=== PATIENT | male | born 1980 | race Caucasian/White ===

== ENCOUNTER 2016-09-12 19:46 | Emergency (ER) | payer SELFPAY ==
[2016-09-12] MEDS ORDERED: Ketorolac 30 MG/ML SDV IVPUSH ONE (19:54)
[2016-09-12] MEDS ORDERED: Sodium Chloride 0.9% 1,000 ML IV ONE (19:54)
[2016-09-12] MEDS ORDERED: Ondansetron 4 MG/2 ML SDV IVPUSH ONE (19:54)
--- NOTE | 2016-09-12 20:46 | EDM.PDOC ---
ED HPI GENERAL MEDICAL PROBLEM - General Chief Complaint: Upper Extremity Injury/Pain Stated Complaint: PT HURT RT SHOULDER Time Seen by Provider: 09/12/16 19:51 Source of Information: Reports: Patient History Limitations: Reports: No Limitations - History of Present Illness INITIAL COMMENTS - FREE TEXT/NARRATIVE: History of present illness: [26-year-old male presenting with acute onset right-sided shoulder and clavicular pain. Patient indicates that he had an accident on his side by side where he hyperextended his arm and subsequently had a traumatic jabbing sensation into his arm and now he feels he cannot lift his arm without assistance from his opposing arm] Review of systems: As per history of present illness and below otherwise all systems reviewed and negative. Past medical history: As per history of present illness and as reviewed below otherwise noncontributory. Surgical history: As per history of present illness and as reviewed below otherwise noncontributory. Social history: No reported history of drug or alcohol abuse. Family history: As per history of present illness and as reviewed below otherwise noncontributory. Physical exam: HEENT: Atraumatic, normocephalic, pupils reactive, negative for conjunctival pallor or scleral icterus, mucous membranes moist, throat clear, neck supple, nontender, trachea midline. Lungs: Clear to auscultation, breath sounds equal bilaterally, chest nontender. Heart: S1S2, regular, negative for clicks, rubs, or JVD. Abdomen: Soft, nondistended, nontender. Negative for masses or hepatosplenomegaly. Negative for costovertebral tenderness. Pelvis: Stable nontender. Genitourinary: Deferred. Rectal: Deferred. Extremities: Obvious elevation of right clavicle with discordant continuity the bone, negative for cords or calf pain. Neurovascular unremarkable. Neuro: Awake, alert, oriented. Cranial nerves II through XII unremarkable. Cerebellum unremarkable. Motor and sensory unremarkable throughout. Exam nonfocal. Diagnostics: [X-ray right shoulder and right clavicle] Therapeutics: [] Impression: [Fractured clavicle] Plan: [Sling, pain medicine, orthopnea referral] Definitive disposition and diagnosis as appropriate pending reevaluation and review of above. - Related Data Allergies Allergy/AdvReac Type Severity Reaction Status Date / Time No Known Allergies Allergy Verified 09/12/16 20:02 Home Meds: Home Meds . [No Known Home Meds] 09/12/16 [History] Review of Systems - Review of Systems Review Of Systems: See Below (See history of present illness) ED EXAM, GENERAL - Physical Exam Exam: See Below (See history of present illness) Course - Orders/Labs/Meds Orders: Active Orders 24 hr Category Date Time Status Clavicle Rt [CR] Stat Exams 09/12/16 19:50 Ordered Shoulder Comp Rt [CR] Stat Exams 09/12/16 19:50 Ordered Departure - Departure Time of Disposition: 20:48 Disposition: Home, Self-Care 01 Condition: Good Clinical Impression: Closed fracture of clavicle - Discharge Information Instructions: Clavicle Fracture, [id number], How to Use a Sling, [id number] Forms: ED Department Discharge Additional Instructions: The following information is given to patients seen in the emergency department who are being discharged to home. This information is to outline your options for follow-up care. We provide all patients seen in our emergency department with a follow-up referral. The need for follow-up, as well as the timing and circumstances, are variable depending upon the specifics of your emergency department visit. If you don't have a primary care physician on staff, we will provide you with a referral. We always advise you to contact your personal physician following an emergency department visit to inform them of the circumstance of the visit and for follow-up with them and/or the need for any referrals to a consulting specialist. The emergency department will also refer you to a specialist when appropriate. This referral assures that you have the opportunity for follow-up care with a specialist. All of these measure are taken in an effort to provide you with optimal care, which includes your follow-up. Under all circumstances we always encourage you to contact your private physician who remains a resource for coordinating your care. When calling for follow-up care, please make the office aware that this follow-up is from your recent emergency room visit. If for any reason you are refused follow-up, please contact the [facility] Emergency Department at and asked to speak to the emergency department charge nurse. Use sling as discussed Take pain medication as discussed Follow-up with Ortho as referred Return to ER as needed as discussed [facility] [address] [place] [id number] [facility] [address], [address] [place] [address] - My Orders Last 24 Hours: My Active Orders 09/12/16 19:50 Clavicle Rt [CR] Stat Shoulder Comp Rt [CR] Stat - Assessment/Plan Last 24 Hours: My Active Orders 09/12/16 19:50 Clavicle Rt [CR] Stat Shoulder Comp Rt [CR] Stat
[2016-09-12 21:13] VITALS: BP 110/61
--- NOTE | 2016-09-13 17:02 | CR ---
EXAM DATE: 09/12/16 PATIENT'S AGE: 36 Patient: JACE SOTELO Facility: [place], [place] Site . Site : 1980 Study: XRay Shoulder Right clavicle [id number] 8:11:27 PM Ordering Physician: Doctor Wharton Final Report: Right clavicle 2 VIEWS INDICATION: Pain. IMPRESSION: Marked elevation of the right clavicle and marked widening of the AC joint compatible with complete acromioclavicular separation and ligamentous disruption. No osseous fracture however this could represent grade 4 acromial clavicular injury given the marked diastasis. Dictated by Yordy Joe MD @ Sep 12 2016 8:37PM (Electronic Signature) Report Signed by Proxy. SHAHRAM
--- NOTE | 2016-09-13 17:05 | CR ---
EXAM DATE: 09/12/16 PATIENT'S AGE: 36 Patient: JACE SOTELO Facility: [place], [place] Site . Site : 1980 Study: XRay Shoulder Right [id number] 8:12:14 PM Ordering Physician: Doctor Wharton Final Report: Right shoulder. 2 VIEWS INDICATION: Pain. IMPRESSION: See the report for right clavicle. The glenohumeral joint appears normal. No visualized fracture of the scapula or proximal humerus. Mild irregularity distal clavicle no fracture. Dictated by Yordy Joe MD @ Sep 12 2016 8:38PM (Electronic Signature) Report Signed by Proxy. SHAHRAM
== END 2016-09-12 21:13 | disposition home or self-care (01) ==
LOC: MW.ED 19:46
DX: S42.001A Fracture of unspecified part of right clavicle, initial encounter for closed fracture (principal); X50.9XXA Other and unspecified overexertion or strenuous movements or postures, initial encounter
CPT/HCPCS: 73000; 73030; 96361; 96374; 96375; 99284; J1885; J2405; J7040; 99282

== ENCOUNTER 2016-12-31 00:22 | Emergency (ER) | payer SELFPAY ==
--- NOTE | 2016-12-31 00:32 | EDM.PDOC ---
ED HPI GENERAL MEDICAL PROBLEM - General Stated Complaint: ASTHMA Time Seen by Provider: 12/31/16 00:29 - History of Present Illness INITIAL COMMENTS - FREE TEXT/NARRATIVE: HISTORY AND PHYSICAL: History of present illness: Patient 36-year-old white male presents with a concern of medication refill he has a history of asthma states he's run out of his inhaler Review of systems: As per history of present illness and below otherwise all systems reviewed and negative. Past medical history: As per history of present illness and as reviewed below otherwise noncontributory. Surgical history: As per history of present illness and as reviewed below otherwise noncontributory. Social history: No reported history of drug or alcohol abuse. Family history: As per history of present illness and as reviewed below otherwise noncontributory. Physical exam: HEENT: Atraumatic, normocephalic, pupils reactive, negative for conjunctival pallor or scleral icterus, mucous membranes moist, throat clear, neck supple, nontender, trachea midline. Lungs: Clear to auscultation, breath sounds equal bilaterally, chest nontender. Heart: S1S2, regular, negative for clicks, rubs, or JVD. Abdomen: Soft, nondistended, nontender. Negative for masses or hepatosplenomegaly. Negative for costovertebral tenderness. Pelvis: Stable nontender. Genitourinary: Deferred. Rectal: Deferred. Extremities: Atraumatic, negative for cords or calf pain. Neurovascular unremarkable. Neuro: Awake, alert, oriented. Cranial nerves II through XII unremarkable. Cerebellum unremarkable. Motor and sensory unremarkable throughout. Exam nonfocal. Diagnostics: None Therapeutics: None Impression: #1 history of asthma #2 medication refill Definitive disposition and diagnosis as appropriate pending reevaluation and review of above. - Related Data Allergies Allergy/AdvReac Type Severity Reaction Status Date / Time No Known Allergies Allergy Verified 09/12/16 20:02 Home Meds: Home Meds . [No Known Home Meds] 09/12/16 [History] Past Medical History - Past Health History Medical/Surgical History: Denies Medical/Surgical History HEENT History: Reports: None Cardiovascular History: Reports: None Respiratory History: Reports: Asthma Gastrointestinal History: Reports: None Genitourinary History: Reports: None Musculoskeletal History: Reports: None Neurological History: Reports: None Psychiatric History: Reports: None Endocrine/Metabolic History: Reports: None - Infectious Disease History Infectious Disease History: Reports: Chicken Pox - Past Surgical History Cardiovascular Surgical History: Reports: None Social & Family History - Family History Family Medical History: Noncontributory - Tobacco Use Smoking Status *Q: Never Smoker - Recreational Drug Use Recreational Drug Use: Yes Recreational Drug Use Frequency: Socially ED ROS GENERAL - Review of Systems Review Of Systems: ROS reveals no pertinent complaints other than HPI. ED EXAM, GENERAL - Physical Exam Exam: See Below Departure - Departure Time of Disposition: 00:31 Disposition: Home, Self-Care 01 Condition: Good Clinical Impression: History of asthma, Medication refill - Discharge Information Referrals: PCP,None [Primary Care Provider] - Additional Instructions: The following information is given to patients seen in the emergency department who are being discharged to home. This information is to outline your options for follow-up care. We provide all patients seen in our emergency department with a follow-up referral. The need for follow-up, as well as the timing and circumstances, are variable depending upon the specifics of your emergency department visit. If you don't have a primary care physician on staff, we will provide you with a referral. We always advise you to contact your personal physician following an emergency department visit to inform them of the circumstance of the visit and for follow-up with them and/or the need for any referrals to a consulting specialist. The emergency department will also refer you to a specialist when appropriate. This referral assures that you have the opportunity for followup care with a specialist. All of these measure are taken in an effort to provide you with optimal care, which includes your followup. Under all circumstances we always encourage you to contact your private physician who remains a resource for coordinating your care. When calling for followup care, please make the office aware that this follow-up is from your recent emergency room visit. If for any reason you are refused follow-up, please contact the [facility] emergency department at and asked to speak to the emergency department charge nurse. ALYSHA [facility] [address] [place] [id number] Albuterol as prescribed follow-up clinic above call to schedule routine appointment and return as needed as discussed
[2016-12-31 02:17] VITALS: BP 166/76
== END 2016-12-31 00:50 | disposition home or self-care (01) ==
LOC: MW.ED 00:22
DX: Z76.0 Encounter for issue of repeat prescription (principal); J45.909 Unspecified asthma, uncomplicated
CPT/HCPCS: 99281; 99282

== ENCOUNTER 2021-01-08 08:29 | Emergency (ER) | payer BC ==
[2021-01-08] MEDS ORDERED: Ondansetron 4 MG/2 ML SDV IVPUSH ONE (09:00)
[2021-01-08] MEDS ORDERED: Sodium Chloride 0.9% 10 ML Syringe FLUSH PRN (09:00)
[2021-01-08] MEDS ORDERED: Sodium Chloride 0.9% 2.5 ML Syringe FLUSH PRN (09:00)
--- NOTE | 2021-01-08 09:05 | EDM.PDOC ---
ED HPI GENERAL MEDICAL PROBLEM - General Chief Complaint: Gastrointestinal Problem Stated Complaint: VOMITTING Time Seen by Provider: 01/08/21 08:32 - History of Present Illness INITIAL COMMENTS - FREE TEXT/NARRATIVE: 40-year-old male no significant past medical history presenting with nausea vomiting diarrhea and p.o. intolerance. Patient reports that his symptoms started approximately 5 weeks ago. He was diagnosed with H. pylori and given treatment for that. Shortly following that he developed bacterial sinusitis he was placed on Augmentin which did not alleviate his sinus symptoms. He was then placed on Levaquin. This relieved his sinus symptoms within a few days. However approximately 5 days ago he developed nausea vomiting diarrhea and cramping abdominal pain. He stopped taking the Levaquin that the symptoms started. He does have night sweats and chills. He reports a 26 pound weight loss over the last month as well. No dysuria or hematuria no cough or shortness of breath. Patient has had multiple negative tests for COVID-19 over this period of time. Denies prior history of similar episodes. - Related Data Allergies Allergy/AdvReac Type Severity Reaction Status Date / Time No Known Allergies Allergy Verified 01/08/21 08:41 Home Meds: Home Meds Albuterol [Ventolin HFA] 8 gm INH BID PRN 12/31/16 [History] lisinopriL [Lisinopril] 5 mg PO DAILY 01/08/21 [History] Past Medical History - Past Health History Medical/Surgical History: Denies Medical/Surgical History HEENT History: Reports: None Cardiovascular History: Reports: None Respiratory History: Reports: Asthma Gastrointestinal History: Reports: Helicobacter Pylori Genitourinary History: Reports: None Musculoskeletal History: Reports: None Neurological History: Reports: None Psychiatric History: Reports: None Endocrine/Metabolic History: Reports: None Immunologic History: Reports: None Oncologic (Cancer) History: Reports: None Dermatologic History: Reports: None - Infectious Disease History Infectious Disease History: Reports: Chicken Pox - Past Surgical History Cardiovascular Surgical History: Reports: None Social & Family History - Family History Family Medical History: No Pertinent Family History - Tobacco Use Tobacco Use Status *Q: Never Tobacco User - Caffeine Use Caffeine Use: Reports: Coffee, Soda - Recreational Drug Use Recreational Drug Use: No ED ROS GENERAL - Review of Systems Review Of Systems: See Below Free Text/Narrative/Comment: General: Per HPI Skin: No rash. Eyes: No vision problems. ENT: No sore throat. Neck: No neck stiffness. Respiratory: No shortness of breath. Cardiac: No chest pain. Gastrointestinal: Per HPI Urinary: No dysuria. Musculoskeletal: No myalgias/arthralgias. Neurologic: No headache. ED EXAM, GENERAL - Physical Exam Exam: See Below Free Text/Narrative:: General Appearance: No acute distress, appears comfortable Skin: No rash HEENT: Normocephalic/atraumatic, sclera anicteric, mucous membranes dry Neck: Normal range of motion Chest and Lungs: Bilateral breath sounds, clear to auscultation Cardiovascular: Regular rate and rhythm, no murmur Abdomen: Soft, non-tender Musculoskeletal: No edema or tenderness Neurologic: Awake, alert, no obvious deficits, moving all extremities Psychiatric: Appropriate, cooperative Course - Vital Signs Last Recorded V/S: Last Vital Signs Temp 97.2 F 01/08/21 09:53 Pulse 67 01/08/21 09:53 Resp 16 01/08/21 09:53 BP 106/64 01/08/21 09:53 Pulse Ox 98 01/08/21 09:53 - Orders/Labs/Meds Orders: Active Orders 24 hr Category Date Time Status Lactated Ringers [Ringers, Lactated] 1,000 ml Med 01/08/21 09:15 Active IV ASDIRECTED Sodium Chloride 0.9% [Saline Flush] Med 01/08/21 09:00 Active 10 ml FLUSH ASDIRECTED PRN Sodium Chloride 0.9% [Saline Flush] Med 01/08/21 09:00 Active 2.5 ml FLUSH ASDIRECTED PRN Saline Lock Insert [OM.PC] Stat Oth 01/08/21 09:00 Ordered Medication Orders Lactated Ringer's (Ringers, Lactated) 1,000 mls @ 999 mls/hr IV ASDIRECTED MARCO A Last Admin: 01/08/21 09:15 Dose: 999 mls/hr Documented by: [id number] Sodium Chloride (Sodium Chloride 0.9% 10 Ml Syringe) 10 ml FLUSH ASDIRECTED PRN PRN Reason: Keep Vein Open Last Admin: 01/08/21 09:14 Dose: 10 ml Documented by: [id number] Sodium Chloride (Sodium Chloride 0.9% 2.5 Ml Syringe) 2.5 ml FLUSH ASDIRECTED PRN PRN Reason: Keep Vein Open Last Admin: 01/08/21 09:13 Dose: 2.5 ml Documented by: [id number] Labs: Laboratory Tests 01/08/21 01/08/21 Range/Units 09:00 09:00 WBC 7.19 (4.0-11.0) K/uL RBC 5.16 (4.50-5.90) M/uL Hgb 15.6 (13.0-17.0) g/dL Hct 44.8 (38.0-50.0) % MCV 86.8 (80.0-98.0) fL MCH 30.2 (27.0-32.0) pg MCHC 34.8 (31.0-37.0) g/dL RDW Std Deviation 42.3 (28.0-62.0) fl RDW Coeff of Pieter 13 (11.0-15.0) % Plt Count 220 (150-400) K/uL MPV 9.70 (7.40-12.00) fL Neut % (Auto) 74.2 (48.0-80.0) % Lymph % (Auto) 16.4 (16.0-40.0) % Turner % (Auto) 8.8 (0.0-15.0) % Eos % (Auto) 0.3 (0.0-7.0) % Baso % (Auto) 0.3 (0.0-1.5) % Neut # (Auto) 5.3 (1.4-5.7) K/uL Lymph # (Auto) 1.2 (0.6-2.4) K/uL Turner # (Auto) 0.6 (0.0-0.8) K/uL Eos # (Auto) 0.0 (0.0-0.7) K/uL Baso # (Auto) 0.0 (0.0-0.1) K/uL Nucleated RBC % 0.0 /100WBC Nucleated RBCs # 0 K/uL Sodium 135 L (136-148) mmol/L Potassium 4.2 (3.5-5.1) mmol/L Chloride 99 (98-107) mmol/L Carbon Dioxide 27.5 (21.0-32.0) mmol/L BUN 20 H (7.0-18.0) mg/dL Creatinine 1.1 (0.8-1.3) mg/dL Est Cr Clr Drug Dosing 98.96 mL/min Estimated GFR (MDRD) > 60.0 ml/min Glucose 113 H (74-106) mg/dL Calcium 8.8 (8.5-10.1) mg/dL Magnesium 2.2 (1.8-2.4) mg/dL Total Bilirubin 0.5 (0.2-1.0) mg/dL AST 35 (15-37) IU/L ALT 40 (14-63) IU/L Alkaline Phosphatase 52 (46-116) U/L Total Protein 8.6 H (6.4-8.2) g/dL Albumin 3.5 (3.4-5.0) g/dL Globulin 5.1 H (2.6-4.0) g/dL Albumin/Globulin Ratio 0.7 L (0.9-1.6) Lipase 125 (73-393) U/L Meds: Medications Generic Name Dose Route Start Last Admin Trade Name Freq PRN Reason Stop Dose Admin Lactated Ringer's 1,000 mls @ 999 mls/hr 01/08/21 09:15 01/08/21 09:15 Ringers, Lactated IV 999 mls/hr ASDIRECTED MARCO A Administration Sodium Chloride 10 ml 01/08/21 09:00 01/08/21 09:14 Sodium Chloride 0.9% 10 Ml Syringe FLUSH 10 ml ASDIRECTED PRN Administration Keep Vein Open Sodium Chloride 2.5 ml 01/08/21 09:00 01/08/21 09:13 Sodium Chloride 0.9% 2.5 Ml Syringe FLUSH 2.5 ml ASDIRECTED PRN Administration Keep Vein Open Discontinued Medications Generic Name Dose Route Start Last Admin Trade Name Freq PRN Reason Stop Dose Admin Famotidine 20 mg 01/08/21 09:43 01/08/21 09:52 Famotidine 20 Mg/2 Ml Sdv IVPUSH 01/08/21 09:44 20 mg ONETIME ONE Administration Ondansetron HCl 4 mg 01/08/21 09:00 01/08/21 09:10 Ondansetron 4 Mg/2 Ml Sdv IVPUSH 01/08/21 09:01 4 mg ONETIME ONE Administration Departure - Departure Time of Disposition: 10:19 Disposition: Home, Self-Care 01 Condition: Good Clinical Impression: Gastroenteritis - Discharge Information *PRESCRIPTION DRUG MONITORING PROGRAM REVIEWED*: Not Applicable *COPY OF PRESCRIPTION DRUG MONITORING REPORT IN PATIENT ERI: Not Applicable Instructions: Food Choices to Help Relieve Diarrhea, Adult, Dehydration, Adult, [id number] Forms: ED Department Discharge Additional Instructions: Your symptoms were likely due to a poor reaction to the Levaquin leading to significant dehydration. Your labs today were normal you had normal blood counts normal chemistry normal kidney function dysfunction. I encourage you to start taking an [id number] probiotic and to try and slowly and gradually resume a normal diet. If your symptoms worsen or you have any other new symptoms that concern you please call your doctor or return to the ER. If you do not have a primary care doctor you can follow-up at one of the primary clinics listed below. [facility] [address] [place] [address] [place] [address] The following information is given to patients seen in the emergency department who are being discharged to home. This information is to outline your options for follow-up care. We provide all patients seen in our emergency department with a follow-up referral. The need for follow-up, as well as the timing and circumstances, are variable depending upon the specifics of your emergency department visit. If you don't have a primary care physician on staff, we will provide you with a referral. We always advise you to contact your personal physician following an emergency department visit to inform them of the circumstance of the visit and for follow-up with them and/or the need for any referrals to a consulting specialist. The emergency department will also refer you to a specialist when appropriate. This referral assures that you have the opportunity for follow-up care with a specialist. All of these measure are taken in an effort to provide you with optimal care, which includes your follow-up. Under all circumstances we always encourage you to contact your private physician who remains a resource for coordinating your care. When calling for f ollow-up care, please make the office aware that this follow-up is from your recent emergency room visit. If for any reason you are refused follow-up, please contact the [facility] Emergency Department at and asked to speak to the emergency department charge nurse. Sepsis Event Note (ED) - Evaluation Sepsis Screening Result: No Definite Risk - Focused Exam Vital Signs: Vital Signs Temp Pulse Resp BP Pulse Ox 01/08/21 09:53 97.2 F 67 16 106/64 98 01/08/21 08:42 96.0 F L 95 16 134/80 96 - My Orders Last 24 Hours: My Active Orders 01/08/21 09:00 Sodium Chloride 0.9% [Saline Flush] 10 ml FLUSH ASDIRECTED PRN Sodium Chloride 0.9% [Saline Flush] 2.5 ml FLUSH ASDIRECTED PRN Saline Lock Insert [OM.PC] Stat 01/08/21 09:15 Lactated Ringers [Ringers, Lactated] 1,000 ml IV ASDIRECTED - Assessment/Plan Last 24 Hours: My Active Orders 01/08/21 09:00 Sodium Chloride 0.9% [Saline Flush] 10 ml FLUSH ASDIRECTED PRN Sodium Chloride 0.9% [Saline Flush] 2.5 ml FLUSH ASDIRECTED PRN Saline Lock Insert [OM.PC] Stat 01/08/21 09:15 Lactated Ringers [Ringers, Lactated] 1,000 ml IV ASDIRECTED Assessment:: Previously well 40-year-old male only past history of hypertension takes lisinopril for this presenting with signs and symptoms that would be consistent with profound dehydration and medication side effect. However viral gastroenteritis is possible C. difficile considered he does have a number of recent antibiotics but the degree of vomiting and the lack of any significant diarrhea without p.o. intake would make C. difficile much less likely. Malignancy needs to be considered as well given the weight loss but also felt less likely. CBC CMP magnesium and lipase ordered for initial evaluation. IV fluids and antinausea medicines will be given for therapeutics and will reassess. 0945: Labs are normal patient is having some good symptomatic improvement long term through his fluid. We will add Pepcid and initiate p.o. trial. 1020: Patient symptoms continue to improve he tolerated p.o. well patient felt stable for discharge return precaution discussed and understood.
[2021-01-08] MEDS ORDERED: Lactated Ringers 1,000 ML IV SCH (09:15)
[2021-01-08 09:36] LABS: BLOOD UREA NITROGEN,BUN 20 mg/dL (7.0-18.0); CARBON DIOXIDE,CO2 27.5 mmol/L (21.0-32.0); CHLORIDE,CL 99 mmol/L (98-107); GLUCOSE RANDOM 113 mg/dL (74-106); LIPASE 125 U/L (73-393); POTASSIUM,K 4.2 mmol/L (3.5-5.1); SODIUM,NA 135 mmol/L (136-148)
[2021-01-08] MEDS ORDERED: Famotidine 20 MG/2 ML SDV IVPUSH ONE (09:43)
[2021-01-08 10:29] VITALS: BP 111/72; PULSE 82
== END 2021-01-08 10:30 | disposition home or self-care (01) ==
LOC: MW.ED 08:29
DX: K52.9 Noninfective gastroenteritis and colitis, unspecified (principal); J45.909 Unspecified asthma, uncomplicated; Z79.899 Other long term (current) drug therapy
CPT/HCPCS: 36415; 80053; 83690; 83735; 85025; 96374; 96375; 99284; J2405; J3490; J7120

== ENCOUNTER 2022-05-04 09:17 | Day surgery (SDC) | payer BC ==
[~2022-05-04 09:17] MED LIST: Lactated Ringers 1,000 ML IV SCH; Sodium Chloride 0.9% 10 ML Syringe FLUSH PRN; Sodium Chloride 0.9% 2.5 ML Syringe FLUSH PRN; Sodium Chloride 0.9% 20 ML SDV IV PRN
[2022-05-04] MEDS ORDERED: Propofol 200 MG/20 ML SDV ONE (11:36)
[2022-05-04] MEDS ORDERED: fentaNYL 100 MCG/2 ML SDV ONE (11:36)
[2022-05-04] MEDS ORDERED: Lidocaine 2% 5 ML SDV ONE (11:37)
[2022-05-04 13:12] VITALS: BP 98/50; PULSE 83
== END 2022-05-04 13:02 | disposition home or self-care (01) ==
LOC: MW.SDS 09:17
PROVIDERS: ATTEND Surgery
DX: K29.50 Unspecified chronic gastritis without bleeding (principal); K22.89 Other specified disease of esophagus; J45.909 Unspecified asthma, uncomplicated; I10 Essential (primary) hypertension; G47.00 Insomnia, unspecified; K21.9 Gastro-esophageal reflux disease without esophagitis; E66.01 Morbid (severe) obesity due to excess calories; Z79.899 Other long term (current) drug therapy; Z87.891 Personal history of nicotine dependence; Z68.39 Body mass index [BMI] 39.0-39.9, adult
CPT/HCPCS: 43239; J2704; J3010; J7120; 00731; J3490